=== PATIENT | male | born 1965 | race Two or more races ===

== ENCOUNTER 2019-04-05 00:44 | Emergency (ER) | payer MEDICAID ==
[~2019-04-05] VITALS: Ht 182.9 cm; Wt 74.8 kg
[2019-04-05 00:50] VITALS: BP 113/82
--- NOTE | 2019-04-05 00:50 | NUR ---
ED Nurse Note: Pt brought into ED from home by ZEFERINO SINGH 68 for c/o L sided flank pain that radiates into back. Pt has hx of stage 4 liver cancer and notes that the pain became unbearable a couple hours ago. Pt reports taking codeine at 2200 last night with no pain relief. He also reports that he feels mild shortness of breath. Pt is aaox4, breathing is normal and unlabored, no cardiac distress noted.
[2019-04-05] MEDS ORDERED: HYDROmorphone 1mg/ml Carpuject IVP ONE ×2 (01:00→03:15)
--- NOTE | 2019-04-05 01:10 | Emergency Room Report ---
History of Present Illness General Chief Complaint: Dyspnea/Respdistress Source: Patient, EMS Present Illness HPI This a 53-year-old male with a recent diagnosis of stage IV colon cancer with mets to the liver. He had nodes in January and is currently under chemotherapy at [facility]. He has 2 sessions of chemotherapy. He presents with chief complaint of body pain and shortness of breath. 3 days ago he fell onto his left side. He was seen by his doctor and given IV fluid. No x-ray was done. He presents with pain to the left side. Sharp in nature. Worse with inspiration. Worse with palpation. Pain is 9 out of 10. He also has generalized body pain that is worse in the last 2 days. Also noticed swelling to his lower extremity mostly on the right side. He has shortness of breath that is worse with exertion and inspiration. No chest pain. Denies any new trauma. No fever chills. Allergies: Uncoded Allergies: PCN (Allergy, Unknown, 04/05/19) Patient History Past Medical History: see triage record, old chart reviewed Past Surgical History: other Pertinent Family History: none Social History: Denies: smoking Immunizations: other Reviewed Nursing Documentation: PMH: Agreed; PSxH: Agreed Nursing Documentation-PMH Hx Hypertension: Yes Hx Cancer: Yes - liver Review of Systems Constitutional: Reports: malaise, weakness Eye: Denies: eye pain, blurred vision ENT: Denies: ear pain, nose congestion, throat swelling Respiratory: Reports: cough, shortness of breath Cardiovascular: Reports: chest pain; Denies: palpitations Gastrointestinal: Reports: abdominal pain; Denies: diarrhea, nausea, vomiting Musculoskeletal: Reports: muscle pain; Denies: back pain, joint pain Skin: Denies: rash Neurological: Denies: headache, numbness Endocrine: Denies: increased thirst, increased urine Hematologic/Lymphatic: Denies: easy bruising All Other Systems: negative except mentioned in HPI Physical Exam Vital Signs Date Time Temp Pulse Resp B/P (MAP) Pulse Ox O2 Delivery O2 Flow Rate FiO2 04/05/19 00:45 98.8 92 16 113/82 (92) 100 Room Air Vitals normal Sp02 EP Interpretation: reviewed, normal General Appearance: alert, mild distress, cachetic, thin Head: normocephalic, atraumatic Eyes: bilateral eye PERRL, bilateral eye EOMI, bilateral eye scleral icterus ENT: hearing grossly normal, normal pharynx Neck: full range of motion, supple, no meningismus Respiratory: chest non-tender, lungs clear, normal breath sounds, other - Tender to palpation to the left lateral lower ribs. Cardiovascular #1: regular rate, rhythm, no murmur Gastrointestinal: normal bowel sounds, no mass, no organomegaly, no bruit, non- distended, tenderness - Mild diffuse Musculoskeletal: back normal, normal range of motion, swelling - Right lower extremity with 2+ pitting edema Neurologic: alert, oriented x3 Psychiatric: mood/affect normal Medical Decision Making Diagnostic Impression: Primary Impression: Ribs, multiple fractures Qualified Codes: S22.42XA - Multiple fractures of ribs, left side, initial encounter for closed fracture Additional Impressions: Metastatic colon cancer to liver Anemia Qualified Codes: D64.9 - Anemia, unspecified ER Course Patient presents with shortness of breath and chest pain. This secondary to rib fractures. Even though his BNP is elevated, chest showed no evidence of fluid overloaded. Pain is better controlled now. He does have anemia and elevated liver enzyme. This is at baseline. No change from his cancer status. Will discharge home. Rhythm Strip Diag. Results EP Interpretation: yes Rate: 98 Rhythm: NSR, no PVC's, no ectopy CT/MRI/US Diagnostic Results CT/MRI/US Diagnostic Results #1: Imaging Test Ordered: CT chest abdomen pelvis Impression By radiologist. Chest showed acute fracture of left sixth seventh and eighth ribs laterally. No pneumothorax. Malignant lymph and adenopathy and left- sided pleural-based masses. Abdomen showed large amount of ascites. Innumerable liver masses. CT/MRI/US Diagnostic Results #2: Imaging Test Ordered: Ultrasound of the right lower extremity Impression Read by specifications writer. Negative for DVT. Last Vital Signs Date Time Temp Pulse Resp B/P (MAP) Pulse Ox O2 Delivery O2 Flow Rate FiO2 04/05/19 00:45 98.8 92 16 113/82 (92) 100 Room Air Status: improved Disposition: HOME, SELF-CARE Condition: Improved Scripts Oxycodone Hcl (OXYCODONE HCL) 30 Mg Tablet 30 MG ORAL Q6H PRN for For Pain, #30 TAB 0 Refills Prov: Mikhail Curry MD 04/05/19 Additional Instructions: Follow-up with your doctor in 7 days. Continue with your chemotherapy. Return if symptoms worsen. Mikhail Curry MD Apr 05, 2019 01:10
[2019-04-05 01:32] LABS: BASOPHILS % (AUTO) 0.6 % (0.0-2.0); EOSINOPHILS % (AUTO) 0.2 % (0.0-3.0); HEMATOCRIT 27.5 % (42.0-52.0); HEMOGLOBIN 9.4 G/DL (14.2-18.0); LYMPHOCYTES % (AUTO) 10.8 % (20.0-45.0); MEAN CORPUSCULAR VOLUME 97 FL (80-99); MONOCYTES % (AUTO) 5.7 % (1.0-10.0); NEUTROPHILS % (AUTO) 82.7 % (45.0-75.0); PLATELET COUNT 289 K/UL (150-450); RED BLOOD COUNT 2.83 M/UL (4.70-6.10); RED CELL DISTRIBUTION WIDTH 13.7 % (11.6-14.8); WHITE BLOOD COUNT 10.2 K/UL (4.8-10.8)
[2019-04-05 01:44] LABS: ANION GAP 14 mmol/L (5-15); BLOOD UREA NITROGEN 18 mg/dL (7-18); CARBON DIOXIDE 18 MMOL/L (21-32); CHLORIDE 106 MMOL/L (98-107); CREATININE 1.3 MG/DL (0.55-1.30); POTASSIUM 3.9 MMOL/L (3.5-5.1); SODIUM 138 MMOL/L (136-145)
[2019-04-05 01:47] LABS: INR 1.2 (0.9-1.1)
[2019-04-05 01:53] LABS: ALANINE AMINOTRANSFERASE 78 U/L (12-78); ASPARTATE AMINO TRANSFERASE 198 U/L (15-37); BILIRUBIN,TOTAL 6.2 MG/DL (0.2-1.0)
[2019-04-05 01:54] LABS: ALBUMIN 1.3 G/DL (3.4-5.0); ALBUMIN/GLOBULIN RATIO 0.2 (1.0-2.7); ALKALINE PHOSPHATASE 400 U/L (46-116)
[2019-04-05 02:10] LABS: BILIRUBIN,DIRECT 5.5 MG/DL (0.0-0.3)
[2019-04-05 02:37] LABS: BILIRUBIN, URINE 3+ (NEGATIVE); GLUCOSE, URINE (UA) NEGATIVE (NEGATIVE); KETONES,URINE 1+ (NEGATIVE); LEUKOCYTE ESTERASE ,URINE 1+ (NEGATIVE); NITRITE,URINE NEGATIVE (NEGATIVE); PH,URINE 5 (4.5-8.0); PROTEIN,URINE 2+ (NEGATIVE); UROBILINOGEN,URINE 12 MG/DL (0.0-1.0)
[2019-04-05 02:42] LABS: APPEARANCE,URINE SLIGHTLY CLOUDY; COLOR,URINE AMBER
--- NOTE | 2019-04-05 02:58 | Diagnostic Imaging Report ---
CLINICAL INDICATION:Abdominal and chest pain for 2 days TECHNIQUE: No oral contrast, per emergency room physician request. No IV contrast, per emergency room physician request Spiral acquisitions obtained through the chest, abdomen, and pelvis. Multiplanar reconstructions were generated. Total dose length product 644 mGycm. CTDIvol(s) 8 mGy. Radiation dose was minimized using automated exposure control COMPARISON: none FINDINGS Chest: There is a small left pleural effusion. Multiple masslike opacities are seen within the left pleural space. There is also trace pleural fluid on the right. There are compressive atelectatic changes at both lung bases. There is a 1 cm mass within the superior aspect of the left major fissure. There is another located slightly more inferiorly measuring approximately 7 mm in diameter. No definite parenchymal nodules are demonstrated. No definite infiltrates. The heart is enlarged. There is a somewhat ill-defined pericardial effusion measuring up to 1 cm thick. There are extensive coronary artery calcifications. There is mediastinal lymphadenopathy, with the largest nodes in the aortopulmonary window measuring 2.7 cm long axis dimension by 1.7 cm short axis dimension. There is a right chest wall transjugular port catheter, tip of which is at the level of the cavoatrial junction in good position. No axillary or chest wall mass or adenopathy demonstrated. Ascites fluid herniating into the bilateral inguinal canals. The bones demonstrate acute fractures of the left sixth, seventh, and eighth ribs.. Abdomen pelvis: Lack of IV contrast limits assessment of the solid organs. Numerous large masses are seen within the liver, demonstrating mostly low-attenuation. The largest of these is in segment 4A, measures 10 cm long axis dimension. There is a small to moderate amount of ascites fluid present. Ascites fluid is seen also herniating into the bilateral inguinal canals, and there is evidence of large right hydrocele. There are numerous colonic diverticula. No definite evidence of acute diverticulitis, although generalized edema of the mesenteric fat makes is difficult to exclude. The appendix is normal. No small bowel distention. No free intraperitoneal gas is evident. The gallbladder is mildly distended, otherwise unremarkable. No biliary ductal dilatation. The pancreas, spleen, adrenals are unremarkable. The left kidney demonstrates mild hydronephrosis, but without evidence of hydroureter. No evidence of obstructive lesion. The right kidney is unremarkable. No renal parenchymal mass or cyst demonstrated. No pelvic mass or adenopathy. There is generalized edema of the subcutaneous and abdominal and pelvic fat. IMPRESSION: Evidence of disseminated malignancy, with numerous large hepatic lesions, multiple pleural masses, and mediastinal lymphadenopathy. Evidence of anasarca, with small left and trace right pleural effusions, small to moderate ascites, edema of the subcutaneous and abdominal and pelvic fat Acute left sixth seventh and eighth rib fractures. No pneumothorax Colonic diverticulosis. No evidence of diverticulitis Mild left hydronephrosis without evidence of downstream obstructive lesion. 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 The CT scanner at [facility] is accredited by the [employer] and the scans are performed using protocols designed to limit radiation exposure to as low as reasonably achievable to attain images of sufficient resolution adequate for diagnostic evaluation.
[2019-04-05] MEDS ORDERED: OXYCODONE HCL30 MG ORAL (03:17)
[2019-04-05 03:30] VITALS: BP 110/77
--- NOTE | 2019-04-05 03:30 | NUR ---
ER DISCHARGE NOTE: Patient is cleared to be discharged per ERMD, pt is aox4, on room air, with stable vital signs. pt was given dc and prescription instructions, pt was able to verbalize understanding, pt id band and iv site removed without complications. pt is able to stand and pivot to sit in wheelchair. Pt taken to family member car by tech with no complications. pt took all belongings and accompanied by son.
--- NOTE | 2019-04-05 03:36 | Diagnostic Imaging Report ---
Indication: Right leg edema Technique: Grayscale and duplex images of the right lower extremity veins Comparison: Findings: On the right, grayscale and duplex images demonstrate no evidence of intraluminal thrombus. Normal phasic Doppler waveforms, demonstrating normal augmentation response and no evidence of valvular insufficiency. Greater saphenous vein(s) and tibial veins are patent. Normal compressibility. Impression: Negative for evidence of lower extremity deep venous thrombosis on the right
== END 2019-04-05 04:06 | disposition home or self-care (01) ==
LOC: EDBD 00:44 → EMR 01:06
DX: S22.42XA Multiple fractures of ribs, left side, initial encounter for closed fracture (principal); C18.9 Malignant neoplasm of colon, unspecified; C78.7 Secondary malignant neoplasm of liver and intrahepatic bile duct; D64.9 Anemia, unspecified; I10 Essential (primary) hypertension; W01.0XXA Fall on same level from slipping, tripping and stumbling without subsequent striking against object, initial encounter; Y93.9 Activity, unspecified; Y92.9 Unspecified place or not applicable; Z88.0 Allergy status to penicillin
CPT/HCPCS: 36415; 71250; 74176; 80053; 81003; 82248; 83690; 83880; 84484; 85025; 85610; 85730; 86850; 86900; 86901; 87086; 93971; 96374; 96375; 96376; J1170; J2405; J7040; Z7502; 99284